=== PATIENT | male | born 1960 | race Caucasian/White ===

== ENCOUNTER 2023-07-13 14:00 | Emergency (ER) | payer OTHER, SELFPAY ==
[2023-07-13] VITALS (26 sets, daily range): BP systolic 138–187; BP diastolic 83–109; PULSE 45–74; RESP 10–25; TEMP 36.4; O2SAT 78–100
--- NOTE | 2023-07-13 14:00 | RT.EKG_ITS ---
APPROVED REPORT Exam: Resting ECG Reason for Exam: epigastric pain Patient Location: E HR:52 bpm ECG Measurements Heart Rate 52 AXIS MS 145 P 73 QRSd 90 QRS -63 QT 431 T 50 QTc 402 Conclusion Sinus bradycardia...rate< 60 Left anterior fascicular block...axis(240,-40), init forces inf no ST segment or T wave abnormalities to suggest occlusive IN
[2023-07-13 14:22] LABS: Lactate 1.8 mmol/L (0.6-1.4)
[2023-07-13 14:25] LABS: HCT 38.6 % (40.0-50.0); HGB 12.9 g/dL (13.5-17.5); MCH 29.9 pg (27.0-33.0); MCHC 33.4 % (32.0-36.0); MCV 89 fL (80-95); MPV 9.7 fL (8.0-11.0); RBC 4.32 10^6/uL (4.36-5.78); RDW 14.4 % (11.8-14.1); RDW-SD 46.9 fL
--- NOTE | 2023-07-13 14:26 | DI.CT_ITS ---
Exam(s) CT THORAX ABD/PEL CTA EXAM: CT THORAX ABD/PEL CTA CLINICAL HISTORY: epigastric pain, hypertension, eval dissection. TECHNIQUE: Imaging Protocol: Axial CT angiography was performed with multi-slice acquisition and m ulti-planar and/or 3D reconstructions. CONTRAST MATERIAL: Intravenous: Omnipaque contrast volume:126 mL Oral: No COMPARISON: No exams were available for comparison FINDINGS: CHEST: Tracheobronchial tree: Patent where visualized. Pulmonary parenchyma: There is a 2.1 cm spiculated nodule in the left upper lobe (series 8, image 128 ). Moderate centrilobular emphysematous changes are present. There is a small ground-glass nodule i n the medial aspect of the left upper lobe (series 8, image 262). There is a grouping of nodules in the lateral aspect of the left upper lobe. The largest measures 8 mm. (Series 8, image [id number]). Ther e is a 4 mm nodule in the periphery of the low right lower lobe (series 8, image 451). Pulmonary Arteries: No evidence of filling defect to suggest pulmonary emboli. Mediastinum and [place]: No dominant adenopathy or fluid collection. The esophagus is unremarkable. Visualized thyroid: Unremarkable. Pleura: No effusion or pneumothorax. Heart: The heart is not dilated. Coronary artery calcification is present. No pericardial effusion. Aorta: The ascending thoracic aorta measures 4.2 x 4.0 cm. There is no evidence of dissection. Athe rosclerotic calcification is present. Soft Tissues: Unremarkable. Bones: Within normal limits for the patient's age. ABDOMEN AND PELVIS: Abdomen: Celiac axis/mesenteric arteries: No evidence of occlusion or significant stenosis. Renal Arteries: No evidence of occlusion or significant stenosis. There is atherosclerosis at the or igins of the renal arteries. Aorta: There is a 4.9 x 4.5 cm infrarenal abdominal aortic aneurysm. Atherosclerotic calcification is seen. There is no evidence of dissection. Pelvis: Iliac Arteries: No evidence of occlusion or significant stenosis. Atherosclerotic calcification is present. There is a left common iliac stent in place. There is occlusion of the origin of the left internal iliac artery with reconstitution distally. Common Femoral Arteries: No evidence of occlusion or significant stenosis. There is atherosclerotic calcification present. There is occlusion of the right femoral artery. ABDOMEN: Liver: Normal density. There is a small hepatic cysts present. No suspicious hepatic masses are seen . Gallbladder and Biliary Tract: No radiodense calculus or dilation. Pancreas: Normal density, no abnormal calcifications or inflammatory process. Spleen: The spleen is absent. Adrenals: The left adrenal gland is not well seen and may be surgically absent. There is a 1.3 cm ri ght adrenal nodule. Kidneys: Normal size, contour and axis. No radiodense stones or obstructive uropathy. No masses seen. Bowel: There is diverticulosis of the colon but no evidence of acute diverticulitis. There is no gale dence of bowel obstruction or bowel wall thickening. Appendix is unremarkable. Peritoneal Cavity: No ascites, collection or mesenteric inflammatory response. No free air. Lymph Nodes: Within normal limits. Bones: Within normal limits for the patient's age. Soft Tissues: Unremarkable. PELVIS: Bladder: Symmetric distention, no gross wall thickening. Reproductive Organs: Unremarkable as visualized. Lymph Nodes: Within normal limits. Bones: Within normal limits for the patient's age. IMPRESSION: 1. There is an abdominal aortic aneurysm without evidence of rupture. It measures 4.9 x 4.5 cm. 2. Left common iliac stent. There is occlusion of the origin of the left internal iliac artery with distal reconstitution. 3. Occlusion of the right femoral artery. 4. No acute abdominal or pelvic process. 5. 2.1 cm spiculated mass in the right upper lobe. Neoplasm should be considered. There also severa l pulmonary nodules present and metastatic disease cannot be excluded. PET/CT scan should be conside red for further evaluation. 6. Right adrenal nodule. MRI follow-up is recommended. Unexpected findings RADIATION DOSE DELIVERED: 751.4mGy.cm Total DLP DATA REPOSITORY: All CT scans at this facility are submitted to the National Radiology Data Registry (NRDR) Dose Index Registry (DIR) with the [employer] (ACR). RADIATION OPTIMIZATION: All CT scans at this facility use at least one of these dose optimization te chniques: automated exposure control; mA and/or kV adjustment per patient size (includes targeted exa ms where dose is matched to clinical indication); or iterative reconstruction.
--- NOTE | 2023-07-13 14:27 | ED.GENADUL_ITS ---
Discharge Plan Disposition Patient Disposition: Home Condition: Good Discharge Details Clinical Impression: Abdominal pain Primary Care Provider: [facility] Provider: Carisa Cerna Home Meds and New Rx's Prescriptions: New sucralfate [Carafate] 1 gram tablet 1 g PO BID Qty: 30 0RF sucralfate [Carafate] 1 gram tablet 1 g PO BID Qty: 30 0RF Continued aspirin [Adult Low Dose Aspirin] 81 mg tablet,delayed release (DR/EC) 81 mg PO DAILY Discharge Instructions Instructions: Abdominal Pain (ED) Additional Instructions: Carafate twice a day. Call your primary care doctor tomorrow to schedule an appointment within the next two days to followup on your visit here. Return to the emergency department for new or worsening symptoms including new/different/worsening pain, or if you have any other concerns. HPI General Mode of arrival: ambulatory . Date/Time Provider Initiated Documentation: 07/13/23 14:07 . Limitations to Documentation: no limitations . Information obtained by: patient . HPI Narrative: 62yo M with PAD, known 4cm aortic aneurysm, lung cancer and adrenal cancer, s/p left adrenal removal & splenectomy, presenting for severe epigastric pain. Pain started around 0300 this morning and woke him from sleep. It is dull, substernal, and has no alleviating or aggravating factors. Associated nausea, no vomiting. Tolerating fluids today. Recent vascular surgery/stenting to right lower extremity. He is otherwise in his usual state of health with no fevers, chills, rash, dysuria, hematuria, back pain flank pain, numbness, tingling, weakness, LE edema, chest pain, shortness of breath, or other concerns. Related Data Home Medications Medication Instructions Recorded Confirmed aspirin 81 mg tablet,delayed 81 mg PO DAILY 07/13/23 07/13/23 release (Adult Low Dose Aspirin) sucralfate 1 gram tablet (Carafate) 1 g PO BID #30 tabs 07/13/23 sucralfate 1 gram tablet (Carafate) 1 g PO BID #30 tabs 07/13/23 Previous Rx's Medication Instructions Recorded sucralfate 1 gram tablet (Carafate) 1 g PO BID #30 tabs 07/13/23 sucralfate 1 gram tablet (Carafate) 1 g PO BID #30 tabs 07/13/23 Allergies Allergy/AdvReac Type Severity Reaction Status Date / Time No Known Allergies Allergy Unverified 07/13/23 14:39 General Stated Complaint: Abd Prob JOYCE: 3 Review of Systems Narrative: see HPI Exam Narrative Exam Narrative: General: Alert, non-toxic. Chronically ill appearing. Head: Normocephalic, atraumatic Neck: Trachea midline, ?Neck supple. ENT: ?MMM.? Cardiac: ?RRR, no murmurs appreciated Resp: No respiratory distress. CTAB. Abd: ?Soft, non-distended, epigastric tenderness to palpation with no rebound or guarding. : ?No suprapubic tenderness. No CVA tenderness. Extremities: ?No deformities.? No peripheral edema. Surgical incision to right thigh healing well, no erythema or discharge Neurologic: GCS 15. ? Moves all extremities freely against gravity Course Vital Signs Vital signs: Vital Signs Temperature 36.4 C L 07/13/23 14:02 Pulse 60 07/13/23 14:02 Respiratory Rate 20 07/13/23 14:02 Blood Pressure 145/92 H 07/13/23 14:02 Pulse Oximetry 100 07/13/23 14:02 Temperature 36.4 C L 07/13/23 14:02 Temperature Source Temporal Artery Scan 07/13/23 14:02 Pulse 59 L 07/13/23 14:16 Pulse 71 07/13/23 14:20 Respiratory Rate 17 07/13/23 14:20 Respiratory Effort Normal, Non-Labored 07/13/23 14:17 Blood Pressure 180/101 H 07/13/23 14:16 Blood Pressure Mean 127 07/13/23 14:16 Blood Pressure Position Sitting 07/13/23 14:02 Pulse Oximetry 99 07/13/23 14:17 Oxygen Delivery Method Room Air 07/13/23 14:02 Oxygen Flow Rate 0 07/13/23 14:02 Pain Level 6 07/13/23 14:17 Lab/Test Results Lab/Test Results: Laboratory Tests Range/Units 07/13/23 14:15 VBG Lactate (0.6-1.4) mmol/L 1.8 H Medical Decision Making 62yo M with PAD, known 4cm aortic aneurysm, lung cancer and adrenal cancer, s/p left adrenal removal & splenectomy, presenting for severe epigastric pain. Associated nausea, no vomiting. Recent vascular surgery/stenting to right lower extremity. [place]line hypertensive on arrival 140's/90's, vital signs o therwise reassuring. Not overtly septic. Epigastric tenderness on exam with no rebound or guarding. Negative baez's. Healing surgical incision to RLE. Broad differential most concerning including aortic dissection, pulmonary embolism, pancreatitis, less likely gallbladder pathology/cholecystitis/choleliathiasis/choledocoliathiasis, bowel obstruction. Zofran/dilaudid for symptoms. EKG with no ST segment or T wave abnormalities to suggest occlusive LA. Labs reviewed as below, CBC with mild leukocytosis and anemia (unknown baseline), CMP reassuring, lipase negative, lactate reassuring a t 1.8, troponin negative in the setting of 12 hours of constant pain (would not further pursue ACS). Will add tyelnol and toradol for pain. CT independently reviewed, no dissection or large saddle pulmonary embolus on my view, radiology read below. On reassessment patient reports pain initially improved but has returned. Will try GI cocktail and carafate. On subsequent reassessment he reports feeling much improved. Unclear etiology of symptoms (gastritis, reflux, non-perforated peptic ulcer possible), with reassuring workup here appropriate for outpatient followup. Discharged home to followup with PCP; discharge instructions and return precautions were reviewed with patient who verbalized understanding. All questions were answered and he is in full agreement with the plan. Imaging Data Radiologic Study: Imaging: CT Scan Radiologist's impression: IMPRESSION: 1. No evidence of dissection. 2. Abdominal aortic aneurysm with no changes of rupture. 3. No acute intra-abdominal or intrathoracic process. 4. Multiple pulmonary nodules in the right upper lobe and left middle lobe to be correlated with prior studies and history of malignancy. Lab Data Lab results reviewed: Yes I reviewed the patient's lab results. Labs: Laboratory Tests Range/Units 07/13/23 14:15 WBC (4.4-10.8) 10^3/uL 13.08 H RBC (4.36-5.78) 10^6/uL 4.32 L Hgb (13.5-17.5) g/dL 12.9 L Hct (40.0-50.0) % 38.6 L MCV (80-95) fL 89 MCH (27.0-33.0) pg 29.9 MCHC (32.0-36.0) % 33.4 RDW (11.8-14.1) % 14.4 H Plt Count (130-400) 10^3/uL 712 H MPV (8.0-11.0) fL 9.7 Immature Gran % % 0.0 Neutrophils % % 70.0 Lymphocytes % % 20.0 Atypical Lymphs % % 2 Monocytes % % 8.0 Eosinophils % % 0.0 Basophils % % 0.0 Nucleated RBC % (0.0-0.3) % 0.0 Absolute Neutrophils (1.2-6.7) 10^3/uL 9.16 H Absolute Lymphocytes (1.2-3.4) 10^3/uL 2.88 Absolute Monocytes (0.1-0.8) 10^3/uL 1.05 H Absolute Eosinophils (0.0-0.7) 10^3/uL 0.00 Absolute Basophils (0.0-0.2) 10^3/uL 0.00 RBC Morphology See Below Poikilocytosis 1+ VBG Lactate (0.6-1.4) mmol/L 1.8 H Sodium (136-145) mmol/L 141 Potassium (3.5-5.1) mmol/L 4.1 Chloride (98-107) mmol/L 100 Carbon Dioxide (21.0-32.0) mmol/L 27.2 Anion Gap (3-11) mmol/L 13.8 H BUN (7-18) mg/dL 16 Creatinine (0.70-1.30) mg/dL 0.8 Est GFR (CKD-EPI 2020) (mL/min/1.73m2) 99.44 Glucose (74-106) mg/dL 122 H Calcium (8.5-10.1) mg/dL 11.1 H Magnesium (1.8-2.4) mg/dL 1.7 L Total Bilirubin (0.2-1.0) mg/dL 0.6 AST (15-37) U/L 14 L ALT (16-63) U/L 20 Alkaline Phosphatase (46-116) U/L 99 Troponin I (< or =60) ng/L < 50 NT-Pro-B Natriuret Pep (<300) pg/mL 83 Total Protein (6.4-8.2) g/dL 8.5 H Albumin (3.4-5.0) g/dL 4.3 Lipase (16-77) U/L 32 Quality:SDOH Health Related Social Needs: No Data to Display PFSH All Active Problems (Updated 07/13/23 @ 18:21 by Carisa Cerna MD) Abdominal pain (Acute) Social History Smoking/Tobacco Use Status: Never Smoking risk assessment performed?: Yes Alcohol Intake: never Drug use: Daily Substance use type: marijuana
[2023-07-13 14:35] LABS: Magnesium 1.7 mg/dL (1.8-2.4)
[2023-07-13] MEDS: Ondansetron 4 MG/2 ML VIAL IVP (14:35)
[2023-07-13] MEDS: HYDROmorphone 2 MG/ML SYR 0.5 MG IVP (14:35)
[2023-07-13 14:47] LABS: ALT 20 U/L (16-63); AST 14 U/L (15-37); Albumin 4.3 g/dL (3.4-5.0); Alkaline Phosphatase 99 U/L (46-116); Anion Gap 13.8 mmol/L (3-11); BUN 16 mg/dL (7-18); Bilirubin, Total 0.6 mg/dL (0.2-1.0); CO2 27.2 mmol/L (21.0-32.0); CREATININE 0.8 mg/dL (0.70-1.30); Calcium 11.1 mg/dL (8.5-10.1); Chloride 100 mmol/L (98-107); Estimated GFR 99.44 (mL/min/1.73m2); Glucose 122 mg/dL (74-106); Lipase 32 U/L (16-77); NT-proBNP 83 pg/mL (<300); Potassium 4.1 mmol/L (3.5-5.1); Sodium 141 mmol/L (136-145); Total Protein 8.5 g/dL (6.4-8.2); Troponin I < 50 ng/L (< or =60)
[2023-07-13 14:49] LABS: Platelet Count 712 10^3/uL (130-400); WBC 13.08 10^3/uL (4.4-10.8)
[2023-07-13 14:50] LABS: Absolute Lymphocyte Count 2.88 10^3/uL (1.2-3.4); Absolute Monocyte Count 1.05 10^3/uL (0.1-0.8); Absolute Neutrophil Count 9.16 10^3/uL (1.2-6.7); Atypical Lymphocytes % 2 %; Diff Comment Manual Differential; Poikilocytes 1+
[2023-07-13] MEDS: Normal Saline - Diluent 50 ML VIAL IJ (15:05)
[2023-07-13] MEDS: Omnipaque 350 MG/ML 100 ML BTL IJ (15:06)
[2023-07-13] MEDS: Omnipaque 350 MG/ML 50 ML BTL IJ (15:21)
[2023-07-13] MEDS: Normal Saline Flush 10 ML SYR IVP (15:22)
--- NOTE | 2023-07-13 16:04 | DI.VRAD_ITS ---
PROCEDURE INFORMATION: Exam: CTA Chest With Contrast CTA Abdomen and Pelvis With Contrast Exam date and time: 07/13/2023 3:16 PM Age: 62 years old Clinical indication: Other: Epigastric pain, hypertension, eval dissection; Abdominal pain; Prior surgery; Surgery date: 6+ months; Surgery type: Lung CA. Adrenal and liver TECHNIQUE: Imaging protocol: Computed tomographic angiography of the chest with contrast. Exam focused on the arteries. Computed tomographic angiography of the abdomen and pelvis with contrast. Exam focused on the arteries. 3D rendering (Not supervised by radiologist): MIP and/or 3D reconstructed images were created by the technologist. Contrast material: OMNIPAQUE 350; Contrast volume: 126 ml; Contrast route: INTRAVENOUS (IV); COMPARISON: No relevant prior studies available. FINDINGS: VASCULATURE: Pulmonary arteries: Normal. No pulmonary emboli. Aorta: Calcified atheromas of the aortic arch ascending aorta and descending thoracic aorta. There is a partially thrombosed abdominal aortic aneurysm measuring 4.9 x 4.4 cm, 1.5 cm inferior to the renal artery. Celiac trunk and mesenteric arteries: The inferior mesenteric artery arises from the aneurysm and is patent. Calcified atheroma at the superior mesenteric artery causing mild stenosis. Renal arteries: Calcified atheroma at the origin of bilateral renal arteries with mild stenosis. Right iliac arteries: Calcified atheromas of the right common iliac artery causing mild stenosis. Calcified atheromas of the right external iliac artery causing moderate stenosis. Calcified atheroma of the right internal iliac artery causing moderate stenosis. 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 Left iliac arteries: Patent left common iliac and external iliac artery stent. Calcified atheroma of the left external iliac artery causing mild stenosis. Calcified atheroma of the left internal iliac artery causing occlusion. CHEST: Lungs: There are bilateral apical predominant emphysematous changes. There is a spiculated mass measuring 1.4 x 1.2 cm in the posterior segment of the right upper lobe. There are partially calcified left middle lobe pulmonary nodules measuring 1.4 x 0.4 cm. Pleural spaces: Unremarkable. No pneumothorax. No pleural effusion. Heart: Unremarkable. No cardiomegaly. No pericardial effusion. ABDOMEN AND PELVIS: Liver: No mass. Gallbladder and bile ducts: Unremarkable. No calcified stones. No ductal dilation. Pancreas: Unremarkable. No mass. No ductal dilation. Spleen: Post splenectomy. Adrenal glands: Unremarkable. No mass. Kidneys and ureters: Unremarkable. No solid mass. No hydronephrosis. Stomach and bowel: There is diverticulosis of the sigmoid colon. Appendix: No evidence of appendicitis. Intraperitoneal space: Unremarkable. No free air. No significant fluid collection. Urinary bladder: Unremarkable. No mass. Reproductive: Prostate gland calcifications. Lymph nodes: Unremarkable. No enlarged lymph nodes. Bones/joints: There is mild curvature of the lumbar spine convex to the left. Mild degenerative disease of bilateral sacroiliac joints. Mild degenerative disease of bilateral hip joints. Left os acetabula. Curvature of the lumbar spine convex to the left. Soft tissues: Unremarkable. IMPRESSION: 1. No evidence of dissection. 2. Abdominal aortic aneurysm with no changes of rupture. 3. No acute intra-abdominal or intrathoracic process. 4. Multiple pulmonary nodules in the right upper lobe and left middle lobe to be correlated with prior studies and history of malignancy. Dictated and Authenticated by: Jerrell Salmon MD. Ordering:DONNA Younger MD
[2023-07-13] MEDS: Acetaminophen 500 MG TAB 1000 MG PO (16:20)
[2023-07-13] MEDS: Ketorolac 15 MG/ML VIAL IVP (16:20)
[2023-07-13] MEDS: Sucralfate 1 GM TAB 2 GM PO (16:54)
[2023-07-13 18:36] LABS: Troponin I < 50 ng/L (< or =60)
== END 2023-07-13 18:54 | disposition home or self-care (01) ==
PROVIDERS: Emergency Provider Student in an Organized Health Care Education/Training Program
DX: R10.13 Epigastric pain (principal); R11.0 Nausea; C34.90 Malignant neoplasm of unspecified part of unspecified bronchus or lung; C79.70 Secondary malignant neoplasm of unspecified adrenal gland; I71.43 Infrarenal abdominal aortic aneurysm, without rupture; Z79.899 Other long term (current) drug therapy
CPT/HCPCS: 71275; 80053; 83690; 93005; 96374; 96375; 99285; 74174; 83605; 83735; 83880; 84484; 85025; 93010; 99284; J1170; J1885; J2405; J3490; Q9967